=== PATIENT | male | born 1960 | race Caucasian/White ===

== ENCOUNTER 2019-08-17 05:40 | Day surgery (SDC) | payer OTHER ==
--- NOTE | 2019-08-16 08:51 | HP ---
HISTORY OF PRESENT ILLNESS: The patient is a 59-year-old male, who has a several month history of progressive left shoulder pain without specific injury. He has had persistent symptoms despite rest, restriction of activities, and use of anti-inflammatory medication. 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 This pain is interfering with day-to-day activities including getting dressed, sleeping, and working. PAST MEDICAL HISTORY: The patient has a history of atrial fibrillation. He is followed by Dr. Noriega. He has been seen and cleared for surgery. He normally takes Eliquis, but has stopped this 4 days prior to surgery. He also has history of hypertension, hyperlipidemia, and arthritis. CURRENT MEDICATIONS: Include; 1. Eliquis. 2. Flonase. 3. Spironolactone. 4. Sotalol. 5. Lipitor. 6. Low-dose aspirin. 7. Nexium. 8. Depo-Testosterone. 9. Irbesartan. 10. Montelukast. 11. Symbicort. 12. Ventolin. 13. Amlodipine. 14. Diazepam. ALLERGIES: HE HAS NO KNOWN ALLERGIES. FAMILY HISTORY: Otherwise, unremarkable. SOCIAL HISTORY: Otherwise, unremarkable. REVIEW OF SYSTEMS: Otherwise, unremarkable. PHYSICAL EXAMINATION: GENERAL: Reveals a healthy male. HEENT: Unremarkable. NECK: Supple. CHEST: Clear. HEART: Regular rate and rhythm. ABDOMEN: Soft, nontender. RECTAL: Deferred. GENITAL: Deferred. EXTREMITIES: Pertinent findings related to the left shoulder, there is no obvious atrophy. There is tenderness in the subacromial area. Forward flexion is 170 degrees, but it is painful. There is pain with abduction. There is weakness of abduction and some weakness of external rotation. He has positive impingement sign. Neurovascular exam is intact. There is no instability. DIAGNOSTIC STUDIES: X-rays of the left shoulder reveal DJD of the AC joint and sclerotic changes of the greater tuberosity. MRI scan of the left shoulder reveals a retracted supraspinatus tear with extension into the infraspinatus and severe DJD of the AC joint. IMPRESSION: Chronic impingement syndrome and rotator cuff tear, left shoulder. PLAN: Open acromioplasty and rotator cuff repair. The nature of the surgery, length of recovery, and potential complications such as infection, loss of motion, incomplete relief, recurrent tear, inability to repair the tear, neurovascular injury, and need for additional treatment and repeat surgery have been discussed in detail. Job ID: [id number]
[2019-08-16 10:01] VITALS: BMI 30.8
[2019-08-17 06:23] LABS: #Eosinphils 0.5 thou/uL (0.0-0.7); #Lymphocytes 2.3 thou/uL (1.20-3.40); #Monocytes 0.7 thou/uL (0.11-0.59); #Neutrophils 4.1 thou/uL (1.40-6.50); %Basophils 0.6 % (0.0-1.0); %Eosinophils 6.1 % (0.0-10.0); %Monocytes 9.6 % (0.0-10.0); %Neutrophils 53.7 % (42.0-75.0); Hemoglobin 12.6 g/dL (14.0-18.0); Mean Corpuscular HGB CONC 34.6 g/dL (32.0-36.0); Mean Corpuscular Hemoglobin 31.1 pg (27.0-31.0); Mean Corpuscular Volume 89.8 fL (78.0-98.0); Mean Platelet Volume 7.2 fL (7.4-10.4); Platelet Count 206 thou/uL (130-400); RBC Distribution Width 11.9 % (11.5-14.5); Red Blood Cell (RBC) Count 4.07 mill/uL (4.70-6.10); White Blood Cell (WBC) Count 7.6 thou/uL (4.8-10.8)
[2019-08-17] MEDS ORDERED: Lidocaine 1% (PF) 30 ML VIAL ONE (06:26)
[2019-08-17] MEDS ORDERED: Fentanyl 100 MCG/2 ML VIAL ONE ×3 (06:26→10:27)
[2019-08-17] MEDS ORDERED: Midazolam HCl 2 mg/2 ml Vial ONE (06:26)
[2019-08-17 06:44] LABS: Anion Gap 13 mmol/L (10-20); BUN (Urea Nitrogen) 18 mg/dL (8.4-25.7); Calc. Creatinine Clearance 105 mL/min (70-130); Calcium 9.2 mg/dL (7.8-10.44); Carbon Dioxide 23 mmol/L (22-29); Chloride 106 mmol/L (98-107); Estimated GFR-MDRD 72; Glucose 99 mg/dL (70-105); Potassium 3.8 mmol/L (3.5-5.1); Sodium 138 mmol/L (136-145)
[2019-08-17] MEDS ORDERED: Promethazine HCl 25 MG/ML VIAL IM PRN (07:07)
[2019-08-17] MEDS ORDERED: Fentanyl 100 MCG/2 ML VIAL SLOW IVP PRN (07:07)
[2019-08-17] MEDS ORDERED: traMADol HCl 50 MG TAB PO PRN ×2 (07:07)
[2019-08-17] MEDS ORDERED: Zolpidem Tartrate 5 MG TAB PO PRN (07:07)
[2019-08-17] MEDS ORDERED: HYDROcodone/Acetaminophen 10/325 mg Tablet PO PRN ×2 (07:07)
[2019-08-17] MEDS ORDERED: Ropivacaine 0.2% 550 ML 550 ML NERVE BLCK SCH (07:07)
[2019-08-17] MEDS ORDERED: Acetaminophen 325 MG TAB PO PRN (07:07)
[2019-08-17] MEDS ORDERED: Ondansetron PF 4 MG/2 ML Vial IVP PRN (07:07)
--- NOTE | 2019-08-17 10:22 | OP ---
DATE OF PROCEDURE: 08/17/2019 [facility] OPERATOR: Vincent Wilburn PA-C. PREOPERATIVE DIAGNOSIS: Rotator cuff tear, left shoulder. POSTOPERATIVE DIAGNOSIS: Rotator cuff tear, left shoulder. PROCEDURES PERFORMED: Open acromioplasty and rotator cuff repair, left shoulder. ANESTHESIA: General plus scalene block. OPERATIVE FINDINGS: Examination under anesthesia revealed full range of motion and no instability of the left shoulder. At expiration, there was moderate subacromial prominence and impingement and DJD of the AC joint. There was a chronic large retracted U-shaped tear of the rotator cuff involving the supraspinatus and infraspinatus. Biceps tendon was intact. Satisfactory repair was accomplished. DESCRIPTION OF PROCEDURE: After satisfactory anesthesia was induced in a semi-rinaldi chair position, the patient was prepped and draped in routine manner. Incision was made from the anterolateral aspect of the acromion process and carried distally, carried down through the subcutaneous tissues. Bleeding points were controlled with Bovie electrocautery. Deltoid raphe was split and the deltotrapezial fascia was split from the superior surface of the acromion and AC joint. The deltoid reflected distally and medially. Coracoacromial ligament was divided. The anterior edge of the acromion process was excised with an osteotome, flushed with the distal clavicle and the undersurface beveled with a curved osteotome and smoothed with a rasp. Partial subacromial bursectomy was performed. Using sharp and blunt dissection, the tear was identified and mobilized with blunt dissection. The ends were freshened with sharp dissection and portion of the greater tuberosity was debrided for bony bed. Two heavy convergence sutures were placed in the proximal portion of the tear to bring this together and then a single double-loaded anchor was placed in the greater tuberosity and one limb placed in the posterior aspect of the tear and the other in the anterior aspect of the tear. All the sutures were then tied. This appeared to give good repair. One limb of each suture was then placed in a double row technique using a SwiveLock anchor and the proximal humerus. This appeared to give good stable repair. The wound was thoroughly irrigated. The deltoid was repaired back to bone with interrupted #1 Ethibond. The deltoid raphe was closed with 0 Vicryl. Subcutaneous tissue was closed with 2-0 Vicryl and the skin closed with staple gun. Sterile dressing was applied and the patient was immobilized in an arm sling. He was awakened and taken to the recovery room in stable condition. There were no apparent intraoperative complications. The estimated blood loss was less than 100 mL. The patient will be discharged home in satisfactory condition, instructed on ice, elevation, given written wound care instructions. Instructed on home program of isometrics of his biceps or triceps and gentle pendulum exercises with no active range of motion of his shoulder. He has [place] 10 at home for pain. He will resume Eliquis at a prophylactic dose of 2.5 mg daily starting tomorrow for 4 days and then resume his normal dose of 5 mg b.i.d. He will continue aspirin. He will be rechecked in my office in approximately 2 weeks or sooner if there are any problems prior to that time. Job ID: [id number]
[2019-08-17] MEDS ORDERED: Ropivacaine 0.5% HCl/PF (150 MG/30 ML VIAL) ONE (10:31)
[2019-08-17] MEDS ORDERED: Metoclopramide HCl 10 MG/2 ML VIAL ONE (10:31)
[2019-08-17] MEDS ORDERED: Glycopyrrolate 0.2 MG/ML 5 ML SYRINGE ONE (10:31)
[2019-08-17] MEDS ORDERED: Succinylcholine Chloride 20 MG/ML 10 ml SYRINGE FS ONE (10:31)
[2019-08-17] MEDS ORDERED: Ondansetron PF 4 MG/2 ML Vial ONE (10:31)
[2019-08-17] MEDS ORDERED: Lidocaine 1% PF 5 ML VIAL ONE (10:31)
[2019-08-17] MEDS ORDERED: Dexamethasone 20 MG/5 ML VIAL ONE (10:31)
[2019-08-17] MEDS ORDERED: Ropivacaine 0.2% HCl/PF (40 MG/20 ML VIAL) ONE (10:31)
[2019-08-17] MEDS ORDERED: EPHEDRINE 25 MG/5 ML SYRINGE ONE (10:31)
[2019-08-17] MEDS ORDERED: Rocuronium Bromide 10 MG/ML (10ML VIAL) ONE (10:31)
== END 2019-08-17 13:30 | disposition home or self-care (01) ==
LOC: SDC 05:40
PROVIDERS: ATTEND Orthopaedic Surgery
PROC: 0LQ20ZZ Repair Left Shoulder Tendon, Open Approach (ICD-10-PCS; principal; 2019-08-17)
PROC: 0RNK0ZZ Release Left Shoulder Joint, Open Approach (ICD-10-PCS; principal; 2019-08-17)
PROC: 3E0T3BZ Introduction of Anesthetic Agent into Peripheral Nerves and Plexi, Percutaneous Approach (ICD-10-PCS; principal; 2019-08-17)
DX: M75.102 Unspecified rotator cuff tear or rupture of left shoulder, not specified as traumatic (principal); M75.42 Impingement syndrome of left shoulder; G89.18 Other acute postprocedural pain; I48.91 Unspecified atrial fibrillation; I10 Essential (primary) hypertension; E78.5 Hyperlipidemia, unspecified; M19.90 Unspecified osteoarthritis, unspecified site; Z79.01 Long term (current) use of anticoagulants; Z79.82 Long term (current) use of aspirin; Z79.899 Other long term (current) drug therapy
CPT/HCPCS: 80048; 85025; 93005; 93010; A4306; C1713; J0690; J1100; J2001; J2250; J2405; J2765; J2795; J3010

== ENCOUNTER 2020-04-02 09:50 | Outpatient (CLI) | payer OTHER ==
--- NOTE | 2020-04-02 12:41 | RAD ---
PA AND LATERAL VIEWS CHEST: Date: 04/02/2020 HISTORY: Esophageal dysphagia. FINDINGS: The heart size is normal. The lungs are expanded without lobar consolidation, pneumothoraces, or pleu ral effusions. There are mild degenerative changes in the spine. IMPRESSION: No radiographic evidence of acute cardiopulmonary process. POS: AH
--- NOTE | 2020-04-02 12:43 | RAD ---
LEFT FOOT 3 VIEWS: Date: 04/02/2020 HISTORY: Plantar fasciitis, left foot pain. FINDINGS/IMPRESSION: No fracture, dislocation, or bony destruction seen. There is tiny plantar calcaneal enthesophyte. POS: AH
--- NOTE | 2020-04-02 13:58 | RAD ---
Exam: Barium swallow esophagram HISTORY: Esophageal dysphagia. EXPOSURE: 1.3 minutes, 2.882 noe/cm2. FINDINGS: Initial artist color separation radiograph was part of a 2 view chest radiograph. The cervical and thoracic esophagus have an overall normal course and caliber. No evidence of obstruc tion. No evidence of penetration or aspiration. There is a small diverticulum in the distal thoracic esophagus. 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 Transcribed Date/Time: 04/02/2020 2:20 PM
== END 2020-04-02 09:51 | disposition home or self-care (01) ==
LOC: RAD 09:50
PROVIDERS: ATTEND Family Medicine
DX: M72.2 Plantar fascial fibromatosis (principal); R13.10 Dysphagia, unspecified; Q39.6 Congenital diverticulum of esophagus
CPT/HCPCS: 71046; 74220

== ENCOUNTER 2020-11-08 07:50 | Outpatient (CLI) | payer OTHER ==
[2020-03-29 18:20] LABS: SARS-CoV-2 MS2 Positive; SARS-CoV-2 N Gene Negative; SARS-CoV-2 S Gene Negative; SARS-CoV-2 by NAA Not Detected (NotDetected); SARS-CoV-2 orf1ab Negative
[2020-11-08 18:21] LABS: SARS-CoV-2 PCR by NAA Not Detected (NotDetected)
== END 2020-11-08 07:51 | disposition home or self-care (01) ==
LOC: LABBT 07:50
PROVIDERS: ATTEND Physician Assistant Medical
DX: Z01.812 Encounter for preprocedural laboratory examination (principal); R09.89 Other specified symptoms and signs involving the circulatory and respiratory systems; K22.70 Barrett's esophagus without dysplasia; Z20.822 Contact with and (suspected) exposure to COVID-19
CPT/HCPCS: 70486; U0003; U0005

== ENCOUNTER 2020-11-08 10:51 | Outpatient (CLI) | payer OTHER | END 2020-11-08 10:52 | disposition home or self-care (01) | LOC: CTENTCT 10:51 | PROVIDERS: ATTEND Otolaryngology Plastic Surgery within the Head & Neck | DX: J32.9 Chronic sinusitis, unspecified (principal) | CPT/HCPCS: 70486 ==

== ENCOUNTER → 2020-11-12 | Day surgery (SDC) | payer OTHER | LOC: SDC 07:14 | PROVIDERS: ATTEND Physician Assistant Medical | DX: K22.70 Barrett's esophagus without dysplasia (principal); R09.89 Other specified symptoms and signs involving the circulatory and respiratory systems | CPT/HCPCS: 91010 ==

== ENCOUNTER 2022-04-30 10:43 | Outpatient (CLI) | payer BC ==
[2022-04-30 13:02] LABS: Hemoglobin 12.4 g/dL (13.5-17.5); Mean Corpuscular HGB CONC 32.5 g/dL (32.0-36.0); Mean Corpuscular Hemoglobin 26.6 pg (27.0-33.0); Mean Corpuscular Volume 81.8 fl (81.2-95.1); Mean Platelet Volume 9.6 fl (7.4-10.4); Platelet Count 211 10x3/uL (150-450); RBC Distribution Width 15.7 % (11.5-14.5); Red Blood Cell (RBC) Count 4.67 10x6/uL (4.32-5.72); White Blood Cell (WBC) Count 5.2 10x3/uL (3.5-10.5)
[2022-04-30 13:25] LABS: Anion Gap 14 mmol/L (10-20); BUN (Urea Nitrogen) 19 mg/dL (8.4-25.7); Calc. Creatinine Clearance 0 mL/min (70-130); Carbon Dioxide 24 mmol/L (23-31); Chloride 107 mmol/L (98-107); Estimated GFR 83; Glucose 88 mg/dL (80-115); Potassium 4.5 mmol/L (3.5-5.1); Sodium 140 mmol/L (136-145)
== END 2022-04-30 10:44 | disposition home or self-care (01) ==
LOC: LABBT 10:43
PROVIDERS: ATTEND Specialist
DX: Z01.812 Encounter for preprocedural laboratory examination (principal); J32.0 Chronic maxillary sinusitis; J30.9 Allergic rhinitis, unspecified; J34.3 Hypertrophy of nasal turbinates; J34.2 Deviated nasal septum; J34.89 Other specified disorders of nose and nasal sinuses; R19.8 Other specified symptoms and signs involving the digestive system and abdomen; R09.82 Postnasal drip; R09.81 Nasal congestion
CPT/HCPCS: 80048; 85027

== ENCOUNTER 2022-05-15 07:13 | Day surgery (SDC) | payer BC ==
[2022-05-14 14:39] VITALS: BMI 32.3
[2022-05-15] MEDS ORDERED: Oxymetazoline HCl 0.05% (30 ML BOT) ONE (07:58)
[2022-05-15] MEDS ORDERED: Fentanyl 250 MCG/5 ML VIAL ONE (08:48)
[2022-05-15] MEDS ORDERED: Bacitracin Zinc Ointment 30 gm TUBE ONE (08:54)
[2022-05-15] MEDS ORDERED: Lidocaine 1% (PF) 30 ML VIAL ONE (08:54)
[2022-05-15] MEDS ORDERED: EPINEPHrine 1 MG/ML AMP ONE (08:54)
[2022-05-15] MEDS ORDERED: Dexamethasone 20 MG/5 ML VIAL ONE (09:15)
[2022-05-15] MEDS ORDERED: Rocuronium Bromide 10 MG/ML (10ML VIAL) ONE (09:15)
[2022-05-15] MEDS ORDERED: NEOSTIGMINE 3 MG/3 ML SYR 3 MG/3 ML SYRINGE ONE (09:15)
[2022-05-15] MEDS ORDERED: PROPOFOL 200 MG/20 ML VIAL ONE (09:15)
[2022-05-15] MEDS ORDERED: ePHEDrine 50 MG/ML VIAL ONE (09:15)
[2022-05-15] MEDS ORDERED: GLYCOPYRROLATE/PF 0.2 MG/ML VIAL ONE (09:15)
[2022-05-15] MEDS ORDERED: Phenylephrine 10 MG/ML VIAL ONE (09:15)
[2022-05-15] MEDS ORDERED: Ondansetron PF 4 MG/2 ML Vial ONE (09:15)
[2022-05-15] MEDS ORDERED: methylPREDNISolone Acetate 40 mg/ml Vial ONE (09:31)
[2022-05-15] MEDS ORDERED: Hydrocodone-Acetamin 15 ML UDCUP ONE (11:16)
== END 2022-05-15 11:30 | disposition home or self-care (01) ==
LOC: SDC 07:13
PROVIDERS: ATTEND Specialist
DX: J32.0 Chronic maxillary sinusitis (principal); J34.2 Deviated nasal septum; J34.3 Hypertrophy of nasal turbinates; J30.9 Allergic rhinitis, unspecified; M19.90 Unspecified osteoarthritis, unspecified site; E78.5 Hyperlipidemia, unspecified; I11.9 Hypertensive heart disease without heart failure; I48.91 Unspecified atrial fibrillation; Z79.01 Long term (current) use of anticoagulants; Z79.82 Long term (current) use of aspirin; Z79.899 Other long term (current) drug therapy
CPT/HCPCS: J0171; J1030; J1100; J2001; J2370; J2405; J2704; J3010; J3490